=== PATIENT | male | born 1990 | race Caucasian/White ===

== ENCOUNTER 2018-01-13 11:53 | Outpatient (CLI) | payer OTHER ==
--- NOTE | 2018-01-18 13:14 | Diagnostic Imaging Report ---
Indication: Cough Technique: One view of the chest Comparison: None Findings: 12 mm triangular opacity projects in the right mid hemithorax, seen only on the PA view. This is questionably calcified. The lungs and pleural spaces are clear otherwise. Normal cardiomediastinal silhouette. Impression: Right midlung 12 mm nodular opacity, probably but not definitively calcified. Compare with any prior images of the views available, consider CT for further evaluation if clinically indicated Findings discussed by phone with Dr. Woods at 1300 on 01/18/2018
== END 2018-01-13 13:53 | disposition home or self-care (01) ==
LOC: RAD 11:53
DX: R05 Cough (principal)
CPT/HCPCS: 71046